=== PATIENT | female | born 1960 | race Two or more races ===

== ENCOUNTER 2019-03-06 18:56 | Emergency (ER) | payer OTHER ==
[~2019-03-06] VITALS: Ht 152.4 cm; Wt 59.0 kg
[2019-03-06] MEDS ORDERED: LOSARTAN POTASS50 MG (19:03)
== END 2019-03-06 23:53 | disposition home or self-care (01) ==
LOC: ER 18:56
DX: N39.0 Urinary tract infection, site not specified (principal); R10.32 Left lower quadrant pain

== ENCOUNTER 2020-08-28 12:41 | Outpatient (CLI) | payer OTHER ==
[~2020-08-28 12:41] MED LIST: ALBUTEROL; COZAAR100 MG PO; FLUTIC; LOSARTAN POTASS50 MG; XHANCE16 ML
== END 2020-08-28 18:00 | disposition home or self-care (01) ==
LOC: LAB 12:41
PROVIDERS: ATTEND Obstetrics & Gynecology
DX: Z20.828 Contact with and (suspected) exposure to other viral communicable diseases (principal)

== ENCOUNTER 2020-08-31 06:30 | Day surgery (SDC) | payer OTHER ==
[2020-08-31] MEDS ORDERED: MORGIDOX100 MG PO (10:28)
[2020-08-31] MEDS ORDERED: Tylenol #3 PO (10:28)
== END 2020-08-31 13:20 | disposition home or self-care (01) ==
LOC: CIR.AMB 06:30
PROVIDERS: ATTEND Obstetrics & Gynecology
DX: D25.0 Submucous leiomyoma of uterus (principal); N84.0 Polyp of corpus uteri; Z20.828 Contact with and (suspected) exposure to other viral communicable diseases